=== PATIENT | female | born 1965 | race Caucasian/White ===

== ENCOUNTER → 2020-07-13 10:05 | Outpatient (CLI) | payer OTHER, SELFPAY ==
--- NOTE | ~2020-07-13 | MM_ITS ---
EXAMINATION: MM screening alejandra BI w penelope HISTORY: Screening TECHNIQUE: Craniocaudal and mediolateral oblique 3-D tomosynthesis images were obtained and synthetic 2-D images were generated. CAD analysis was submitted and interpreted. COMPARISON: No prior mammogram is available for comparison at this institution.. BREAST PARENCHYMAL COMPOSITION: There are scattered areas of fibroglandular density. FINDINGS: There is no evidence of suspicious mass, calcification, or architectural distortion to sugg est malignancy in either breast. There has been no suspicious interval change. IMPRESSION: 1. No mammographic evidence of malignancy. 2. Recommend routine screening mammography in one year. BI-RADS Category 1: Negative Reviewed, dictated and finalized at location A.
== END ==
PROVIDERS: PCP Student in an Organized Health Care Education/Training Program; Visit Provider Student in an Organized Health Care Education/Training Program
DX: Z12.31 Encounter for screening mammogram for malignant neoplasm of breast (principal)
CPT/HCPCS: 77063; 77067

== ENCOUNTER → 2021-09-12 16:51 | Outpatient (CLI) | payer OTHER, SELFPAY ==
--- NOTE | ~2021-09-12 | MM_ITS ---
EXAMINATION: MM screening alejandra BI w penelope HISTORY: Screening mammogram TECHNIQUE: Craniocaudal and mediolateral oblique 3-D tomosynthesis images were obtained and synthetic 2-D images were generated. CAD analysis was submitted and interpreted. COMPARISON: 07/13/2020 bilateral screening mammogram BREAST PARENCHYMAL COMPOSITION: There are scattered areas of fibroglandular density. FINDINGS: There is no evidence of suspicious mass, calcification, or architectural distortion to sugg est malignancy in either breast. There has been no suspicious interval change. IMPRESSION: 1. No mammographic evidence of malignancy. 2. Recommend routine screening mammography in one year. BI-RADS Category 1: Negative Reviewed, dictated and finalized at location A.
== END ==
PROVIDERS: PCP Student in an Organized Health Care Education/Training Program; Visit Provider Obstetrics & Gynecology
DX: Z12.31 Encounter for screening mammogram for malignant neoplasm of breast (principal)
CPT/HCPCS: 77063; 77067

== ENCOUNTER → 2023-01-25 16:20 | Outpatient (CLI) | payer OTHER, SELFPAY ==
--- NOTE | ~2023-01-25 | MM_ITS ---
EXAMINATION: MM screening alejandra BI w penelope HISTORY: Screening mammogram TECHNIQUE: Craniocaudal and mediolateral oblique 3-D tomosynthesis images were obtained and synthetic 2-D images were generated. CAD analysis was submitted and interpreted. COMPARISON: 09/12/2021, 07/13/2020 bilateral screening mammogram examinations BREAST PARENCHYMAL COMPOSITION: There are scattered areas of fibroglandular density. FINDINGS: There is no evidence of suspicious mass, calcification, or architectural distortion to sugg est malignancy in either breast. There has been no suspicious interval change. IMPRESSION: 1. No mammographic evidence of malignancy. 2. Recommend routine screening mammography in one year. BI-RADS Category 1: Negative Reviewed, dictated and finalized at location A.
== END ==
PROVIDERS: PCP Obstetrics & Gynecology; Visit Provider Obstetrics & Gynecology
DX: Z12.31 Encounter for screening mammogram for malignant neoplasm of breast (principal)
CPT/HCPCS: 77063; 77067

== ENCOUNTER 2023-11-11 07:00 | Outpatient (NON) | payer OTHER, SELFPAY | END 2023-11-11 07:01 | disposition home or self-care (01) | LOC: ANHLAB 11-12 08:09 | PROVIDERS: PCP Student in an Organized Health Care Education/Training Program; Visit Provider Obstetrics & Gynecology | DX: N95.0 Postmenopausal bleeding (principal) | CPT/HCPCS: 88305 ==

== ENCOUNTER 2023-11-11 10:41 | Day surgery (SDC) | payer OTHER, SELFPAY ==
[2023-11-09 14:17] VITALS: BMI 34.1
--- NOTE | 2023-11-09 15:50 | P.HP_ITS ---
H&P: HPI History of Present Illness Date/Time: 11/09/23 15:50 Chief Complaint: Postmenopausal bleeding Narrative: using 8 year female postmenopausal was spotty bleeding. Ultrasound showed fibroids thickened endometrium. She is offered hysteroscopy dilatation curettage risks and benefits in great detail she received handouts entitled hysteroscopy as well as dilatation curettage respectively. She had all que stions answered. She asked to proceed. Meds Home Medications and Allergies Allergies Allergy/AdvReac Type Severity Reaction Status Date / Time No Known Allergies Allergy Unverified 03/21/16 10:36 Exam Const: General: cooperative, healthy appearing and comfortable Nutritional Appearance: overweight Orientation/consciousness: oriented to person, oriented to place and oriented to time Resp: Effort & Inspection: normal respiratory effort Cardio: Rate: regular rate Rhythm: regular rhythm Heart sounds: S1 normal heart sound present and S2 normal heart sound present GI: Inspection: normal to inspection : External Female Exam: normal external appearance Speculum Exam - Vagina: normal appearance of the vagina Speculum Exam - Cervix: normal appearance of the cervix Bimanual exam- vagina & uterus: enlarged Bimanual Exam- Adnexa, other: normal adnexae Assessment and Plan Assessment and plan (1) Postmenopausal bleeding: Code(s): N95.0 - Postmenopausal bleeding Status: Acute Assessment and Plan: hysteroscopy/dilatation curettage
[2023-11-10 09:08] VITALS: BMI 34.2
--- NOTE | 2023-11-11 06:56 | WPDHPUPDATE1 ---
History and Physical Update Update Date/Time: 11/11/23 06:56 History and Physical has been reviewed, including an updated exam of the patient. There are NO changes in the patient's condition. Risks, benefits, and alternatives have been discussed and questions answered. Patient agrees to proceed with procedure.
[2023-11-11 11:11] VITALS: BMI 33.7
[2023-11-11 11:12] VITALS: BP 147/108; PULSE 76; RESP 16; TEMP 37.1; O2SAT 100
[2023-11-11] MEDS: ACETAMINOPHEN 500 MG TABLET 1000 MG PO (11:26)
[2023-11-11] MEDS: LACTATED RINGERS 1,000 ML 30 ML IV CONT (11:26)
--- NOTE | 2023-11-11 12:09 | P.PNAN_ITS ---
Anes - Initial Pre Proc Eval Procedure: Operation Date: 11/11/23 13:00 Proposed Procedures p Hysteroscopy with Dilation and Curettage - Maximo Motley MD Date/Time: 11/11/23 12:09 Surgeon: Maximo Motley MD Pre Op Diagnosis: Post Menopausal Bleeding Patient Data Age: 58 Gender: F Height: 1.68 m Weight: 95 kg Last Vital Signs Temp 37.1 C 11/11/23 11:12 Pulse 76 11/11/23 11:12 Resp 16 11/11/23 11:12 BP 147/108 H 11/11/23 11:12 Pulse Ox 100 11/11/23 11:12 O2 Del Method Room Air 11/11/23 11:12 Allergies Allergy/AdvReac Type Severity Reaction Status Date / Time No Known Allergies Allergy Verified 11/11/23 11:00 Home Medications Medication Instructions Recorded Confirmed Type Lactobacillus 1 cap PO DAILY 11/10/23 11/11/23 History acidophilus-Bifidobac.animalis 2.5 billion cell capsule (Daily Probiotic) cholecalciferol (vitamin D3) 50 50 mcg PO DAILY 11/10/23 11/11/23 History mcg (2,000 unit) tablet escitalopram oxalate 20 mg tablet 20 mg PO DAILY 11/10/23 11/11/23 History estradiol-norethindrone acet 0.5 1 tablet PO DAILY 11/10/23 11/11/23 History mg-0.1 mg tablet fexofenadine 180 mg tablet 180 mg PO DAILY 11/10/23 11/11/23 History lisinopril 10 mg tablet 10 mg PO DAILY 11/10/23 11/11/23 History meloxicam 15 mg tablet 15 mg PO DAILY 11/10/23 11/11/23 History omeprazole magnesium 20 mg 20 mg PO DAILY 11/10/23 11/11/23 History tablet,delayed release (Prilosec OTC) testosterone 1 % (25 mg/2.5 gram) 1 packet transdermal DAILY 11/10/23 11/11/23 History transdermal gel packet fluticasone furoate 100 1 inh inhalation DAILY 11/11/23 11/11/23 History mcg/actuation blister powder for inhalation (Arnuity Ellipta) hydrocodone 5 mg-acetaminophen 325 1 tablet PO Q4H PRN pain #14 tabs 11/11/23 Rx mg tablet Patient hx anesthesia problems: none Family hx anesthesia problems: none Results Review: All pre-operative results and documents have been reviewed as part of the pre- operative evaluation. [facility] Social History Social History Smoking status: Never smoker Second hand tobacco smoke exposure: Yes Alcohol intake: current Drinks per week: 14 Substance use type: does not use Living arrangements: with family Spiritual care concerns: No Anes - Eval Final PreProcedure Day of Procedure 11/11/23 12:09 Patient weight: obese Heart: regular rate and rhythm Lungs: clear to auscultation Airway: Mallampati scale class II Neurological: alert and oriented Last oral intake: >/= 8 hours ASA classification: III Emergent: no Anesthetic plan: proceed Anesthesia type and monitoring: general GIVS and standard monitoring Results Review: All pre-operative results and documents have been reviewed as part of the pre- operative evaluation. Informed Consent: The patient's anesthetic plan and its attendant risks and benefits were discussed with the patient/family/POA. Questions were solicited and answers pr ovided to the satisfaction of the patient/family/POA.
[2023-11-11] MEDS: LIDOCAINE HCL 1% LOCAL INJ 20 ML VIAL 10 ML INFILTRATE (12:21)
--- NOTE | 2023-11-11 12:29 | W.PM.PROC2 ---
Procedure Note - Detailed Date of Procedure 11/11/23 Pre-op Diagnosis Post Menopausal Bleeding Post-op Diagnosis Same Procedure Performed Hysteroscopy / dilatation curettage Surgeon Maximo Motley MD Anesthesia MAC and Local Indications 58-year-old female with a history of fibroids and postmenopausal bleeding Findings uterus sounded to 9cm. The tissue appeared benign in nature each fallopian tube os could be seen there was question of fibroid that was not quite exposed to the endometrial lining Description of Procedure patient was prepped draped in the normal sterile fashion placed in dorsal lithotomy position. Under excellent IV sedation weighted speculum placed in posterior fornix vagina. Anterior lip of the cervix grasped with single-tooth tenaculum. 2.5cc 1% xylocaine anesthesia placed at 2, 4, 8, 10:00 a.m. of the cervix. Uterus sounded to 9cm. Serial dilatation with fragmented dilators performed followed by passage of the 5mm visualizing hysteroscope. No abnormalities were seen there was irregularity at the top of the fundus which appeared to be of fibroid but was not exposed to the endometrial lining. The uterus was scraped over the entire 360?. A good grating sound was heard the instruments withdrawn. The patient went to recovery in satisfactory condition. All sponge, needle, instrument counts were correct there were immediate complications Estimated Blood Loss 5 Drains No Packing No Pathology Yes Complications No immediate complications Condition Stable Disposition PACU
[2023-11-11 12:35] VITALS: BP 136/87; PULSE 78; RESP 16; O2SAT 97
--- NOTE | 2023-11-11 12:38 | WPDANESPN ---
Anes - Prog Note Post-Op Date/Time: 11/11/23 12:38 Cardiovascular status: normal Respiratory status: normal Airway patency: baseline Mental status: baseline Post-Op hydration status: normal Vital Signs: Last Vital Signs Temp 37.1 C 11/11/23 11:12 Pulse 76 11/11/23 11:12 Resp 16 11/11/23 11:12 BP 147/108 H 11/11/23 11:12 Pulse Ox 100 11/11/23 11:12 O2 Del Method Room Air 11/11/23 11:12 Pain Score (VAS): 0 Patient Feedback: Patient satisfied with anesthetic care.
--- NOTE | 2023-11-11 12:39 | WPDANESPN ---
Anes - Prog Note Post-Op Date/Time: 11/11/23 12:39 Cardiovascular status: normal Respiratory status: normal Airway patency: baseline Mental status: baseline Post-Op hydration status: normal Vital Signs: Last Vital Signs Temp 37.1 C 11/11/23 11:12 Pulse 76 11/11/23 11:12 Resp 16 11/11/23 11:12 BP 147/108 H 11/11/23 11:12 Pulse Ox 100 11/11/23 11:12 O2 Del Method Room Air 11/11/23 11:12 Pain Score (VAS): 0 Patient Feedback: Patient satisfied with anesthetic care. Other Findings: versed 2mg and Dilaudid 2mg given at 1211
[2023-11-11 12:55] VITALS: BP 111/88; PULSE 78; RESP 16; O2SAT 98
[2023-11-11 13:15] VITALS: BP 122/87; PULSE 82; RESP 16; O2SAT 99
== END 2023-11-11 13:22 | disposition home or self-care (01) ==
PROVIDERS: PCP Student in an Organized Health Care Education/Training Program; Visit Provider Obstetrics & Gynecology
PROC: 0U5B8ZZ Destruction of Endometrium, Via Natural or Artificial Opening Endoscopic (ICD-10-PCS; CPT 58563; principal; 2023-11-11 13:00)
DX: N95.0 Postmenopausal bleeding (principal)
CPT/HCPCS: 58558

== ENCOUNTER 2024-02-24 16:11 | Outpatient (CLI) | payer OTHER, SELFPAY ==
--- NOTE | ~2024-02-24 | MM_ITS ---
EXAMINATION: MM screening alejandra BI w penelope HISTORY: Screening mammogram TECHNIQUE: Craniocaudal and mediolateral oblique 3-D tomosynthesis images were obtained and synthetic 2-D images were generated. CAD analysis was submitted and interpreted. COMPARISON: 01/25/2023, 09/12/2021, 07/13/2020 BREAST PARENCHYMAL COMPOSITION:Not Dense. There are scattered areas of fibroglandular density. FINDINGS: There is an 11 mm ovoid mass in the slightly lower, central left breast. Stable parenchymal appearance of the right breast. Bilateral benign vascular calcifications are present. IMPRESSION: 11 mm left breast mass, as detailed above. Spot compression views and ultrasound are recommended for further evaluation. BI-RADS Category 0: Incomplete: Needs additional imaging evaluation. Reviewed, dictated and finalized at [facility]. 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 Spot compression views and ultrasou nd are recommended for further evaluation. BI-RADS Category 0: Incomplete: Needs additional imaging evaluation.
== END 2024-02-24 16:12 | disposition home or self-care (01) ==
LOC: MICIMG 16:12
PROVIDERS: PCP Obstetrics & Gynecology; Visit Provider Obstetrics & Gynecology
DX: Z12.31 Encounter for screening mammogram for malignant neoplasm of breast (principal); N63.20 Unspecified lump in the left breast, unspecified quadrant
CPT/HCPCS: 77063; 77067

== ENCOUNTER 2024-03-24 09:23 | Outpatient (CLI) | payer OTHER, SELFPAY ==
--- NOTE | ~2024-03-24 | MMUS_ITS ---
EXAMINATION: US breast LT limited, MM diagnostic alejandra LT w penelope HISTORY: Abnormal mammogram. TECHNIQUE: Additional 3-D tomosynthesis images of the left breast were performed and synthetic 2-D im ages were generated. CAD analysis was submitted and interpreted. High resolution Limited left breast ultrasound was performed. COMPARISON: Comparison to multiple prior studies sequentially, with oldest reviewed study dated 07/13. BREAST PARENCHYMAL COMPOSITION: Not dense: There are scattered areas of fibroglandular density. FINDINGS: MAMMOGRAPHIC FINDINGS: There is a persistent asymmetry which appears lucency in the lower central aspect of the left breast, possibly superimposed fibroglandular tissue. ULTRASOUND: Limited left breast ultrasound: At 8:00 near the nipple there is a 3 mm cyst. No suspicious masses to suggest malignancy. IMPRESSION: 1. Probable benign focal asymmetry in the lower central left breast, anterior-middle depth. No sonogr aphic correlate. 2. Recommend 6 month follow-up diagnostic left mammogram BI-RADS category 3, probably benign findings. Reviewed, dictated and finalized at location [facility]. 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 Probable benign focal asymmetry in the lower central left breast, anterior-m iddle depth. No sonographic correlate. 2. Recommend 6 month follow-up diagnostic left mammogram BI-RADS category 3, probably benign findings.
== END 2024-03-24 09:24 | disposition home or self-care (01) ==
LOC: MICIMG 09:24
PROVIDERS: PCP Student in an Organized Health Care Education/Training Program; Visit Provider Obstetrics & Gynecology
DX: R92.8 Other abnormal and inconclusive findings on diagnostic imaging of breast (principal)
CPT/HCPCS: 76642; 77061; 77065; G0279

== ENCOUNTER 2024-11-07 10:04 | Outpatient (CLI) | payer OTHER, SELFPAY ==
--- NOTE | ~2024-11-07 | MM_ITS ---
EXAMINATION: MM diagnostic alejandra LT w penelope INDICATION: 59-year old female; 6 month follow up probably benign focal asymmetry in the lower cent ral left breast at middle depth initially evaluated on 03/24/2024. COMPARISON: 03/24/2024 through 07/13/2020. TECHNIQUE: Left breast Digital breast tomosynthesis CC and MLO views of the left breast were obtained with computer-aided detection to assist in interpretation of the study. FINDINGS: There are scattered areas of fibroglandular density. The a focal asymmetry of concern in the lower central left breast centered at middle depth reidentifi ed is Unchanged. No other focal dominant mass, architectural distortion, or suspicious microcalcifications are identif ied. Otherwise there are no features to suggest malignancy in either breast. IMPRESSION: Probably benign finding in the left breast have demonstrated approximately 8 months stab ility since initial discovery. RECOMMEND: Diagnostic bilateral mammogram in 6 months. BI-RADS 3, PROBABLY BENIGN Reviewed, dictated and finalized at location B. IMPRESSION: Probably benign finding in the left breast have demonstrated appro ximately 8 months stability since initial discovery. RECOMMEND: Diagnostic bilateral mammogram in 6 months. BI-RADS 3, PROBABLY BENIGN
== END 2024-11-07 10:05 | disposition home or self-care (01) ==
LOC: MICIMG 10:04
PROVIDERS: PCP Student in an Organized Health Care Education/Training Program; Visit Provider Obstetrics & Gynecology
DX: R92.8 Other abnormal and inconclusive findings on diagnostic imaging of breast (principal)
CPT/HCPCS: 77061; 77065; G0279